=== PATIENT | female | born 1935 | race Caucasian/White ===

== ENCOUNTER 2018-08-22 18:42 | Emergency (ER) | payer MEDICARE, BC ==
[~2018-08-22] VITALS: Ht 152.4 cm; Wt 72.6 kg
[2018-08-22] MEDS ORDERED: ATORVASTATIN CA10 MG PO (19:06)
[2018-08-22] MEDS ORDERED: VERAPAMIL ER120 MG PO (19:06)
[2018-08-22] MEDS ORDERED: RANITIDINE HCL300 MG PEG (19:06)
[2018-08-22] MEDS ORDERED: ECOTRIN325 MG PO (19:06)
[2018-08-22] MEDS ORDERED: MULTI-VITAMIN1 EACH (19:06)
--- NOTE | 2018-08-22 19:20 | NUR ---
[facility] CALL[facility]ITIATE [facility]SFER
--- NOTE | 2018-08-22 19:43 | NUR ---
[facility] [place] - PT TO GO TO [facility] 5 BED 15; [facility] CALLED AT THIS TIME FOR TRANSPORT; [facility] ALSO CALLED TO [place] FOR [facility]
[2018-08-22] MEDS ORDERED: NICARDIPINE 20MG/200ML PREMIX 200 ML IV PRN (19:45)
--- NOTE | 2018-08-22 19:57 | Diagnostic Imaging Report ---
ADDENDUM #1 Item 1 was discussed with Sujatha Yepez RN, at 9:59 PM on 08/22/2018. Signed by: Dr. Isidro Tobin M.D. on 08/22/2018 9:[address] BRAIN WO-HOPD HISTORY: Fall COMPARISON: None. TECHNIQUE: Noncontrast axial scans were obtained from skull base to the vertex. Coronal and sagittal reconstructions obtained from the axial data. One or more of the following dose reduction techniques were used: Automated exposure control, adjustment of the mA and/or kV according to patient size, and/or utilization of iterative reconstruction technique. Beam hardening artifacts obscure some details. DISCUSSION: Scalp/Skull: There is a small right parietal scalp hematoma. No calvarial fractures seen. Brain sulci: Appropriate for patient's age. Ventricles: The frontal horn of the right lateral ventricle is minimally effaced. The ventricles are otherwise unremarkable. Extra-axial spaces: No masses or fluid collections. Carotid siphon calcifications are present Parenchyma: Large right frontal lobar, acute mixed density parenchymal hematoma (along the right frontal operculum/inferior frontal gyrus measures approximately 3.5 x 4.7 x 3.6 cm. There is mild surrounding vasogenic edema. No significant brain herniation is seen. Mild to moderate periventricular white matter hypodensities are likely chronic microvascular ischemic changes. Otherwise, no additional masses, hemorrhage, or large vascular territory acute infarct. Dural sinuses: No abnormal densities. Sellar/Suprasellar region: Intact. Skull base: Intact. Incidental findings: None. IMPRESSION: 1. Large right frontal lobar acute parenchymal hematoma measures up to 4.7 cm in size. There is mild stranding vasogenic edema. No significant brain herniation. 2. Mild to moderate supratentorial chronic microvascular ischemic changes. An attempt to contact Dr. Amaya was made at 7:57 PM on 08/22/2018. Call back number was left. Signed by: Dr. Isidro Tobin M.D. on 08/22/2018 8:03 PM
--- NOTE | 2018-08-22 20:05 | Diagnostic Imaging Report ---
CT C-SPINE W/O - HOPD HISTORY: Trauma COMPARISON: Concurrent head CT TECHNIQUE: CT of the cervical spine without contrast. Sagittal and coronal reformations were created. One or more of the following dose reduction techniques were used: Automated exposure control, adjustment of the mA and/or kV according to patient size, and/or utilization of iterative reconstruction technique. FINDINGS: Mild bone demineralization limits evaluation. Cervical lordosis is preserved. There is no scoliosis or subluxation. No definite acute fracture or compression deformity is seen. The craniocervical junction is intact. No gross spinal canal masses are seen. The paravertebral and paraspinal soft tissues are unremarkable. Mild to moderate multilevel spondylotic changes are most prominent at C5-C6 and C6-C7. Advanced atlantoaxial arthrosis is present. Prominent multilevel bilateral facet arthrosis is present, right greater than left. The right C3-C4 facet joint is fused . There is mild scarring in the lung apices. There is a small granuloma in the left upper lobe. The thyroid gland is mildly atrophic. Mild bilateral carotid bulb calcifications are present. IMPRESSION: 1. No acute osseous abnormalities. 2. Mild to moderate multilevel spondylosis, most prominent at C5-C6 and C6-C7. 3. Prominent multilevel facet arthrosis, right greater than left. The right C3-C4 facet joint is fused. Signed by: Dr. Isidro Tobin M.D. on 08/22/2018 8:02 PM
--- NOTE | 2018-08-22 20:20 | NUR ---
[facility] HERE FOR PT - REPORT GIVEN TO [facility] NURSE; PT IN NAD AT THIS TIME, VSS, RESP EVEN AND NONLAB;
--- NOTE | 2018-08-22 20:35 | NUR ---
PT HANDOFF REPORT GIVEN TO [facility] AT [facility]
== END 2018-08-22 20:30 | disposition short-term general hospital (02) ==
LOC: FSED 18:42
DX: S06.340A Traumatic hemorrhage of right cerebrum without loss of consciousness, initial encounter (principal); R51 Headache; S01.01XA Laceration without foreign body of scalp, initial encounter; W18.39XA Other fall on same level, initial encounter; Y92.000 Kitchen of unspecified non-institutional (private) residence as the place of occurrence of the external cause; E78.5 Hyperlipidemia, unspecified; Z85.3 Personal history of malignant neoplasm of breast
CPT/HCPCS: 70450; 72125; 99284